=== PATIENT | male | born 1930 | race Caucasian/White ===

== ENCOUNTER 2017-07-06 09:32 | Emergency (ER) | payer MEDICARE ==
--- NOTE | 2017-07-06 10:57 | EDM.PDOC ---
ED HPI GENERAL MEDICAL PROBLEM - General Chief Complaint: Chest Pain Stated Complaint: CHEST DISCOMFORT Time Seen by Provider: 07/06/17 09:40 Source of Information: Reports: Patient History Limitations: Reports: No Limitations - History of Present Illness INITIAL COMMENTS - FREE TEXT/NARRATIVE: This is an 87-year-old male. He was having some slight chest discomfort on the left chest area while walking today and felt a little bit lightheaded. He went to the walk-in clinic and they sent him over here for evaluation. This is a very athletic 87-year-old that walks daily rides at least 2 miles on a stationary bicycle every day and runs 1-1/2 miles every day. This morning when he was out walking in the cold weather sheet he was wearing a mask to blunt the coldness of the weather but he noted what as he was walking he felt slightly lightheaded and some discomfort in his left chest area. Since having the flu at the first of the year with nausea vomiting and diarrhea he says he's had a little bit of chest discomfort and fullness in that left chest area on and off since that time. It doesn't seem to affect him while he is exercising running or bicycling but this morning it seemed to bother him some so he was trying to be careful. He denies any other recent illnesses no colds no coughs and no fever. He is without discomfort at this time. Left Chest Pain Score (Numeric/FACES): 1 - Related Data Allergies Allergy/AdvReac Type Severity Reaction Status Date / Time No Known Allergies Allergy Verified 07/06/17 09:45 Home Meds: Home Meds Aspirin [Ecotrin] 81 mg PO DAILY 07/06/17 [History] Past Medical History Oncologic (Cancer) History: Reports: Prostate - Past Surgical History HEENT Surgical History: Reports: Cataract Surgery Other Male Surgeries/Procedures: Radical parostatectomy Social & Family History - Tobacco Use Smoking Status *Q: Former Smoker Used Tobacco, but Quit: Yes Month Tobacco Last Used: 25 years ago - Caffeine Use Caffeine Use: Reports: Coffee - Recreational Drug Use Recreational Drug Use: No ED ROS GENERAL - Review of Systems Review Of Systems: See Below Constitutional: Denies: Fever, Chills HEENT: Reports: No Symptoms Respiratory: Denies: Shortness of Breath, Pleuritic Chest Pain, Cough Cardiovascular: Reports: Chest Pain, Lightheadedness. Denies: Edema, Syncope Endocrine: Reports: No Symptoms GI/Abdominal: Reports: No Symptoms : Reports: No Symptoms Musculoskeletal: Reports: No Symptoms Skin: Reports: No Symptoms Neurological: Reports: No Symptoms Psychiatric: Reports: No Symptoms Hematologic/Lymphatic: Reports: No Symptoms ED EXAM, GENERAL - Physical Exam Exam: See Below Exam Limited By: No Limitations General Appearance: Alert, WD/WN, No Apparent Distress Eye Exam: Bilateral Eye: Normal Inspection Ears: Normal External Exam Nose: Normal Inspection Throat/Mouth: Normal Inspection, Normal Lips, Normal Voice, No Airway Compromise Head: Normocephalic Neck: Supple Respiratory/Chest: No Respiratory Distress, Lungs Clear, Normal Breath Sounds, Chest Non-Tender Cardiovascular: Regular Rate, Rhythm, No Edema, No Murmur GI/Abdominal: Soft, Non-Tender Back Exam: Full Range of Motion Extremities: Normal Inspection, Normal Range of Motion Neurological: Alert, Oriented Psychiatric: Normal Affect, Normal Mood Skin Exam: Warm, Dry EKG INTERPRETATION EKG Date: 07/06/17 Time: 09:44 EKG Interpretation Comments: EKG shows a sinus rhythm rate of 60, there is no acute ST or T-wave changes noted, there is no acute ischemia noted. Course - Vital Signs Last Recorded V/S: Last Vital Signs Temp 98.4 F 07/06/17 09:38 Pulse 64 07/06/17 09:38 Resp 13 07/06/17 09:38 BP 145/95 H 07/06/17 09:38 Pulse Ox 99 07/06/17 09:38 - Orders/Labs/Meds Orders: Active Orders 24 hr Category Date Time Status EKG 12 Lead [EKG Documentation Completion] [RC] STAT Care 07/06/17 09:48 Active Labs: Laboratory Tests 07/06/17 07/06/17 Range/Units 09:40 09:40 WBC 5.06 (4.23-9.07) K/mm3 RBC 4.20 L (4.63-6.08) M/mm3 Hgb 13.7 (13.7-17.5) gm/L Hct 42.4 (40.1-51.0) % MCV 101.0 H (79.0-92.2) fl MCH 32.6 H (25.7-32.2) pg MCHC 32.3 (32.2-35.5) g/dl RDW Std Deviation 50.2 H (35.1-43.9) fL Plt Count 184 (163-337) K/mm3 MPV 10.4 (9.4-12.3) fl Neut % (Auto) 64.3 (34.0-67.9) % Lymph % (Auto) 20.8 L (21.8-53.1) % Grayson % (Auto) 12.1 (5.3-12.2) % Eos % (Auto) 2.0 (0.8-7.0) Baso % (Auto) 0.4 (0.1-1.2) % Neut # (Auto) 3.26 (1.78-5.38) K/mm3 Lymph # (Auto) 1.05 L (1.32-3.57) K/mm3 Grayson # (Auto) 0.61 (0.30-0.82) K/mm3 Eos # (Auto) 0.10 (0.04-0.54) K/mm3 Baso # (Auto) 0.02 (0.01-0.08) K/mm3 Sodium 145 (136-145) mEq/L Potassium 4.0 (3.5-5.1) mEq/L Chloride 105 (98-107) mEq/L Carbon Dioxide 32 (21-32) mEq/L Anion Gap 12.0 (5-15) BUN 19 H (7-18) mg/dL Creatinine 1.0 (0.7-1.3) mg/dL Est Cr Clr Drug Dosing 53.75 mL/min Estimated GFR (MDRD) > 60 (>60) mL/min BUN/Creatinine Ratio 19.0 H (14-18) Glucose 84 (83-115) mg/dL Calcium 9.0 (8.5-10.1) mg/dL Total Bilirubin 0.5 (0.2-1.0) mg/dL AST 32 (15-37) U/L ALT 33 (16-63) U/L Alkaline Phosphatase 59 (46-116) U/L Troponin I < 0.017 (0.00-0.056) ng/mL Total Protein 7.3 (6.4-8.2) g/dl Albumin 4.0 (3.4-5.0) g/dl Globulin 3.3 gm/dL Albumin/Globulin Ratio 1.2 (1-2) - Re-Assessments/Exams Free Text/Narrative Re-Assessment/Exam: 07/06/17 11:56 I spoke to the patient regarding his lab results and troponin. I am concerned that we might be missing something in this small focus of time and I've encouraged him to take it easy and don't do any strenuous activity until he can follow-up with his family doctor and I suggested maybe a stress test would be more helpful to make certain this chest discomfort that he has periodically is not related to his heart. He understands and says he will follow-up with his family doctor and if things worsen he is, come back here again. Departure - Departure Time of Disposition: 11:56 Disposition: Home, Self-Care 01 Condition: Good Clinical Impression: Chest discomfort Instructions: Nonspecific Chest Pain, [id number] Referrals: Elvia Jacobs MD [Primary Care Provider] - Forms: ED Department Discharge Additional Instructions: Take it easy for the next couple of days as far as your exercise is concerned, follow-up with your family doctor this week and perhaps get a treadmill stress test to make sure this chest discomfort is not related to your heart, if there is marked worsening of your chest discomfort or any sort of crushing chest pain or tightness or severe shortness of breath with sweating you need to return to the ER immediately. - My Orders Last 24 Hours: My Active Orders 07/06/17 09:48 EKG 12 Lead [EKG Documentation Completion] [RC] STAT - Assessment/Plan Last 24 Hours: My Active Orders 07/06/17 09:48 EKG 12 Lead [EKG Documentation Completion] [RC] STAT
== END 2017-07-06 12:15 | disposition home or self-care (01) ==
LOC: JD.ED 09:32
DX: R07.89 Other chest pain (principal); Z79.82 Long term (current) use of aspirin; Z87.891 Personal history of nicotine dependence
CPT/HCPCS: 36415; 80053; 84484; 85025; 93005; 93010; 99285; 99285-25